=== PATIENT | male | born 1955 | race African-American/Black ===

== ENCOUNTER 2018-01-01 15:45 | Inpatient (IN) | payer OTHER ==
[~2018-01-01] VITALS: Ht 185.4 cm; Wt 90.7 kg
[2018-01-01 16:26] LABS: BASO % 0.3 %; BASO ABS # 0.02 K/uL (0-0.2); EOS % 3.6 %; EOS ABS # 0.22 K/uL (0-0.5); HEMATOCRIT 41.4 % (42-52); HEMOGLOBIN 13.6 g/dL (14.0-18.0); IG# 0.01 K/uL (0.00-0.02); LYMPH % 30.5 %; LYMPH ABS # 1.86 K/uL (1.2-3.4); MEAN CELL VOLUME 93.2 fL (80-100); MEAN CORPUSCULAR HEMOGLOBIN 30.6 pg (25-34); MEAN CORPUSCULAR HGB CONC 32.9 g/dl (32-36); MEAN PLATELET VOLUME 10.7 fL (7.4-10.4); MONO % 9.7 %; MONO ABS # 0.59 K/uL (0.11-0.59); NEUT % 55.7 %; PLATELET COUNT 251 K/uL (130-400); RED CELL DISTRIBUTION WIDTH CV 12.8 % (11.5-14.5); RED CELL DISTRIBUTION WIDTH SD 43.5 fL (36.4-46.3)
[2018-01-01 16:44] LABS: CALCIUM 9.5 mg/dl (8.5-10.1); CREATININE 1.17 mg/dl (0.60-1.40); POTASSIUM 3.8 mmol/L (3.5-5.1)
--- NOTE | 2018-01-01 16:57 | DIAGNOSTIC IMAGING REPORT ---
CT SCAN OF THE BRAIN WITHOUT IV CONTRAST CLINICAL HISTORY: Left-sided vision loss. COMPARISON STUDY: No priors. TECHNIQUE: Unenhanced axial CT scan of the brain is performed from the vertex to the skull base. A dose lowering technique was utilized adhering to the principles of ALARA. CT DOSE: 537.48 mGy.cm FINDINGS: Brain parenchyma: There is left occipital encephalomalacia consistent with a remote insult. There is heterogeneously diminished attenuation identified in the right temporo-occipital region. There are age-related involutional changes noting moderate subcortical and periventricular microangiopathic change. There is no hemorrhage, mass effect, or evidence of acute territorial ischemia by CT criteria. Main-white matter is preserved. No extra-axial fluid collection is seen. Ventricles, sulci, cisterns: Prominent secondary to involutional change. Intracranial vasculature: There is atherosclerotic calcification of the cavernous carotid arteries. Calvarium: Unremarkable. Soft tissues: There is a small posterior scalp contusion. Sinuses and mastoids: The visualized paranasal sinuses are clear. The mastoid air cells are well pneumatized. Orbits: The bony orbits are grossly intact. IMPRESSION: 1. There is no hemorrhage or mass effect. 2. Left occipital encephalomalacia is consistent with a remote insult. 3. There is heterogeneously diminished attenuation throughout the right temporal occipital region. This could represent a subacute infarct or less likely a mass lesion. Correlation with a contrast-enhanced MRI of the brain is recommended for further assessment. Electronically signed by: Dez Guerra M.D. 01/01/2018 4:56 PM Dictated Date/Time: 01/01/2018 4:48 PM
[2018-01-01] MEDS ORDERED: LORAZEPAM 1 MG TAB SL STA (17:02)
--- NOTE | 2018-01-01 17:21 | DIAGNOSTIC IMAGING REPORT ---
SINGLE VIEW CHEST CLINICAL HISTORY: Blurry vision. FINDINGS: An AP, portable, upright chest radiograph is obtained. No prior studies are available for comparison at the time of dictation. The examination is degraded by portable technique and patient rotation. The heart is mildly enlarged and there is atherosclerotic calcification of the thoracic aorta. The pulmonary vasculature is noncongested. There is mild left basilar atelectasis. No airspace consolidation or large pleural effusion is identified. No pneumothorax is seen. The skeletal structures appear osteopenic. The bony thorax is grossly intact. IMPRESSION: Mild cardiac enlargement with no acute cardiopulmonary abnormality. Electronically signed by: Dez Guerra M.D. 01/01/2018 5:20 PM Dictated Date/Time: 01/01/2018 5:19 PM
[2018-01-01] MEDS ORDERED: LISI-726 PO (17:36)
[2018-01-01] MEDS ORDERED: LPR25 PO (17:36)
[2018-01-01] MEDS ORDERED: GLC500 PO (17:36)
[2018-01-01] MEDS ORDERED: ATOR-22 PO (17:36)
[2018-01-01] MEDS ORDERED: ASPCH81X PO (17:36)
[2018-01-01] MEDS ORDERED: LORAZEPAM 2 MG/ML 1 ML VIAL IV STA ×2 (17:56→18:18)
[2018-01-01] MEDS ORDERED: SODIUM CHLORIDE 0.9% 1000ML 1,000 ML IV STA (20:10)
[2018-01-01] MEDS ORDERED: ASPIRIN 81 MG CHEW PO STA (20:11)
--- NOTE | 2018-01-01 20:35 | EMERGENCY ROOM VISIT NOTE ---
History Report prepared by Scribe: Jignesh Mehta Under the Supervision of: Dr. Luis Angel Ruby D.O. First contact with patient: 16:02 Chief Complaint: HEADACHE Stated Complaint: ACUTE CHANGE IN VISION WITH HEADACHE, POSSIBLE CVA History of Present Illness The patient is a 62 year old male who presents to the Emergency Room with complaints of constant right frontal headache beginning yesterday. He is incarcerated. The patient states that he occasionally has more severe "sharp" pains towards the right side of his face. He also complains of blurred vision. His symptoms began with his blurred vision. The patient's symptoms blurred vision is present in both eyes. He states that he could not see the outside upper portion (bilaterally) or the outside portion of his left eye yesterday as well. He states that this has improved to just be blurriness. The patient notes that he cannot see out of the outside portion of his right eye at baseline due to a previous stroke. Pt denies fevers, chest pain, shortness of breath, nausea , vomiting, diarrhea, pain with urination, numbness, weakness and melena. Source of History: patient Onset: Yesterday Position: head (right frontal) Quality: sharp Timing: constant Associated Symptoms: No fevers, No chest pain, No SOB, No nausea, No vomiting, No melena, No diarrhea, No urinary symptoms Note: Positive: visual changes. Review of Systems See HPI for pertinent positives & negatives. A total of 10 systems reviewed and were otherwise negative. Past Medical & Surgical Medical Problems: (1) Stroke Family History No pertinent family history stated. Social History Smoking Status: Current Every Day Smoker Housing Status: other (incarcerated) Occupation Status: other (incarcerated) Current/Historical Medications Scheduled Aspirin (Aspirin Chewable), 81 MG PO DAILY Atorvastatin (Lipitor), 20 MG PO DAILY Lisinopril (Lisinopril), 20 MG PO DAILY Metformin HCl (Metformin HCl), 500 MG PO BID Metoprolol Tartrate (Lopressor), 25 MG PO BID Allergies Coded Allergies: No Known Allergies (Unverified , 01/01/18) Physical Exam Vital Signs Date Time Temp Pulse Resp B/P (MAP) Pulse Ox O2 Delivery O2 Flow Rate FiO2 01/01/18 20:12 90 16 164/105 97 Room Air 01/01/18 18:33 71 20 177/98 96 Room Air 01/01/18 15:53 37.3 80 20 181/93 96 Room Air Physical Exam GENERAL: Sitting up in bed, shackled, well appearing, no distress, non-toxic EYE EXAM: normal conjunctiva. PERRL and EOM's intact. OROPHARYNX: no exudate, no erythema, lips, buccal mucosa, and tongue normal and mucous membranes are moist NECK: supple, no nuchal rigidity, no adenopathy, non-tender LUNGS: Clear to auscultation. Normal chest wall mechanics HEART: no murmurs, S1 normal and S2 normal ABDOMEN: abdomen soft, non-tender, normo-active bowel sounds, no masses, no rebound or guarding. BACK: Back is symmetrical on inspection and there is no deformity, no midline tenderness, no CVA tenderness. SKIN: no rashes and no bruising UPPER EXTREMITIES: upper extremities are grossly normal. LOWER EXTREMITIES: No pitting edema. NEURO EXAM: Normal sensorium, cranial nerves II-XII intact, normal speech, no weakness of arms, no weakness of legs. No drift. Finger to nose intact. Gross sensation intact. Medical Decision & Procedures ER Provider Diagnostic Interpretation: Radiology results as stated below per my review and the radiologist's interpretation: CT SCAN OF THE BRAIN WITHOUT IV CONTRAST FINDINGS: Brain parenchyma: There is left occipital encephalomalacia consistent with a remote insult. There is heterogeneously diminished attenuation identified in the right temporo-occipital region. There are age-related involutional changes noting moderate subcortical and periventricular microangiopathic change. There is no hemorrhage, mass effect, or evidence of acute territorial ischemia by CT criteria. Main-white matter is preserved. No extra-axial fluid collection is seen. Ventricles, sulci, cisterns: Prominent secondary to involutional change. Intracranial vasculature: There is atherosclerotic calcification of the cavernous carotid arteries. Calvarium: Unremarkable. Soft tissues: There is a small posterior scalp contusion. Sinuses and mastoids: The visualized paranasal sinuses are clear. The mastoid air cells are well pneumatized. Orbits: The bony orbits are grossly intact. IMPRESSION: 1. There is no hemorrhage or mass effect. 2. Left occipital encephalomalacia is consistent with a remote insult. 3. There is heterogeneously diminished attenuation throughout the right temporal occipital region. This could represent a subacute infarct or less likely a mass lesion. Correlation with a contrast-enhanced MRI of the brain is recommended for further assessment. Electronically signed by: Dez Guerra M.D. 01/01/2018 4:56 PM SINGLE VIEW CHEST FINDINGS: An AP, portable, upright chest radiograph is obtained. No prior studies are available for comparison at the time of dictation. The examination is degraded by portable technique and patient rotation. The heart is mildly enlarged and there is atherosclerotic calcification of the thoracic aorta. The pulmonary vasculature is noncongested. There is mild left basilar atelectasis. No airspace consolidation or large pleural effusion is identified. No pneumothorax is seen. The skeletal structures appear osteopenic. The bony thorax is grossly intact. IMPRESSION: Mild cardiac enlargement with no acute cardiopulmonary abnormality. Electronically signed by: Dez Guerra M.D. 01/01/2018 5:20 PM Laboratory Results 01/01/18 16:02 Red Blood Count 4.44, Mean Corpuscular Volume 93.2, Mean Corpuscular Hemoglobin 30.6, Mean Corpuscular Hemoglobin Concent 32.9, Mean Platelet Volume 10.7, Neutrophils (%) (Auto) 55.7, Lymphocytes (%) (Auto) 30.5, Monocytes (%) (Auto) 9.7, Eosinophils (%) (Auto) 3.6, Basophils (%) (Auto) 0.3, Neutrophils # (Auto) 3.40, Lymphocytes # (Auto) 1.86, Monocytes # (Auto) 0.59, Eosinophils # (Auto) 0.22, Basophils # (Auto) 0.02 01/01/18 16:02 Test 01/01/18 16:02 01/01/18 20:24 White Blood Count 6.10 K/uL (4.8-10.8) Red Blood Count 4.44 M/uL (4.7-6.1) Hemoglobin 13.6 g/dL (14.0-18.0) Hematocrit 41.4 % (42-52) Mean Corpuscular Volume 93.2 fL (80-100) Mean Corpuscular Hemoglobin 30.6 pg (25-34) Mean Corpuscular Hemoglobin Concent 32.9 g/dl (32-36) Platelet Count 251 K/uL (130-400) Mean Platelet Volume 10.7 fL (7.4-10.4) Neutrophils (%) (Auto) 55.7 % Lymphocytes (%) (Auto) 30.5 % Monocytes (%) (Auto) 9.7 % Eosinophils (%) (Auto) 3.6 % Basophils (%) (Auto) 0.3 % Neutrophils # (Auto) 3.40 K/uL (1.4-6.5) Lymphocytes # (Auto) 1.86 K/uL (1.2-3.4) Monocytes # (Auto) 0.59 K/uL (0.11-0.59) Eosinophils # (Auto) 0.22 K/uL (0-0.5) Basophils # (Auto) 0.02 K/uL (0-0.2) RDW Standard Deviation 43.5 fL (36.4-46.3) RDW Coefficient of Variation 12.8 % (11.5-14.5) Immature Granulocyte % (Auto) 0.2 % Immature Granulocyte # (Auto) 0.01 K/uL (0.00-0.02) Anion Gap 5.0 mmol/L (3-11) Est Creatinine Clear Calc Drug Dose 72.1 ml/min Estimated GFR () 75.9 Estimated GFR (Non- 65.5 BUN/Creatinine Ratio 15.6 (10-20) Calcium Level 9.5 mg/dl (8.5-10.1) Laboratory results per my review. Medications Administered Medications (Trade) Dose Ordered Sig/Nahum Route Start Time Stop Time Status Last Admin Dose Admin Lorazepam (Ativan Tab) 1 mg NOW STAT SL 01/01/18 17:02 01/01/18 17:03 DC 01/01/18 17:27 1 MG Lorazepam (Ativan Inj) 2 mg NOW STAT IV 01/01/18 18:18 01/01/18 18:21 DC 01/01/18 18:36 2 MG Sodium Chloride 1,000 ml @ 999 mls/hr Q1H1M STAT IV 01/01/18 20:10 01/01/18 21:10 01/01/18 20:24 999 MLS/HR Aspirin (Aspirin Chew) 81 mg NOW STAT PO 01/01/18 20:11 01/01/18 20:12 DC 01/01/18 20:24 81 MG ECG Per My Interpretation Indication: other (visual changes) Rate (beats per minute): 71 Rhythm: sinus rhythm Findings: Q waves (inferior, lateral), other (Normal axis. No PVCs/PACs. ) ED Course ED COURSE: Vital signs were reviewed and showed hypertension. The patients medical record was reviewed The above diagnostic studies were performed and reviewed. ED treatments and interventions as stated above. 1609: The patient was evaluated in room A11B. A complete history and physical examination was performed. 170: Ordered Ativan Tab 1 mg SL. 175: Ordered Ativan Inj 1 mg IV. 1817: The patient reports feeling too anxious for his MRI. He agrees to Ativan. Ordered Ativan Inj 2 mg IV. 2004: Upon reevaluation, the patient is resting comfortably. I discussed my findings with the patient and he understands and agrees with the treatment plan. Based on the patients age, coexisting illnesses, exam and lab findings the decision to treat as an inpatient was made. The patient remained stable while under my care. The patient will be evaluated for further management. Medical Decision Differential Diagnosis includes but is not limited to headache, tension headache , cluster headache, migraine, subarachnoid hemorrhage, meningitis, mass, central venous thrombus, concussion, trauma and epidural/subdural hemorrhage. Patient is a 62-year-old male who presents to ER for visual complaints and for possible stroke. Patient is otherwise neurologically intact. He is able to ambulate. CBC along with BMP is unremarkable. CT head showed a heterogeneous attenuation throughout the right occipital region. Chest x-ray was unremarkable. Patient was given a total of 3 doses of Ativan for a total of 3 mg for the MRI as he was extremely anxious. MRI was obtained and did confirm a stroke in the right occipital region. Discussed with internal medicine. I updated patient at bedside. Patient was admitted for CVA. Medication Reconcilliation Current Medication List: was personally reviewed by [facility] Blood Pressure Screening Patient's blood pressure: Elevated blood pressure Blood pressure disposition: Referred to PCP Consults Time Called: 161 Consulting Physician: Dr. Madsen - Neurology Returned Call: [phone] I discussed the patient's case with Dr. Madsen. She recommends MRI brain with/ without contrast, and MRI Sella. Additional Consults: Time Called: 2004 Consulted Physician: Dr. Morris - [facility] Hospitalist Returned Call: 2006 Additional Comments: I reviewed the patient's case with Dr. Morris. [facility] will evaluate the patient for further management. Impression Primary Impression: CVA (cerebral vascular accident) Additional Impression: Anemia Scribe Attestation The scribe's documentation has been prepared under my direction and personally reviewed by me in its entirety. I confirm that the note above accurately reflects all work, treatment, procedures, and medical decision making performed by me. Departure Information Dispostion Being Evaluated By Hospitalist Patient Instructions [facility] Stroke History Time Last Known Well 24hrs ago Stroke t-PA Criteria Reviewed Does NOT meet criteria for t-PA Reason t-PA Not Given Treatment not indicated Problem Qualifiers Primary Impression: CVA (cerebral vascular accident) CVA mechanism: unspecified Qualified Codes: I63.9 - Cerebral infarction, unspecified Additional Impression: Anemia Anemia type: unspecified type Qualified Codes: D64.9 - Anemia, unspecified
--- NOTE | 2018-01-01 20:58 | DIAGNOSTIC IMAGING REPORT ---
MRI OF THE BRAIN COMBO; MRI OF THE PITUITARY GLAND COMBO CLINICAL HISTORY: Visual changes. COMPARISON STUDY: CT of the brain dated 01/01/2018. TECHNIQUE: MRI of the brain was performed utilizing various T1 and T2-weighted sequences in the axial, sagittal, and coronal planes. Contrast-enhanced sequences were acquired following the administration of 9 cc of Gadavist. Additional high-resolution and dynamic postcontrast imaging of the pituitary gland is performed. The Examination is degraded by motion artifact. FINDINGS: Brain parenchyma: There are age-related involutional changes noting moderate to advanced subcortical and periventricular microangiopathic disease. No hemorrhage or midline shift is identified. There is a large region of restricted diffusion identified involving predominantly the right occipital lobe consistent with acute to subacute ischemia. There is mild surrounding edema. Encephalomalacia in the left occipital lobe is consistent with a remote infarct. No additional foci of acute ischemia are identified. No enhancing mass lesion is seen on the postcontrast images. No extra-axial fluid collection is seen. The cerebellar tonsils are normal in configuration. Ventricles, sulci, and cisterns: Prominent second or to involutional change. Pituitary and sella: The pituitary gland is normal in morphology. There is no evidence of pituitary lesion on the dynamic postcontrast sequences. The infundibulum is midline. Intracranial vasculature: Normal flow voids are maintained at the skull base. Orbits: The bony orbits are grossly intact. Orbital contents are normal in appearance. Sinuses and mastoids: There is mild mucosal thickening in the right maxillary antrum. A 3 cm retention cyst is noted in the left maxillary antrum. The remaining paranasal sinuses are clear. The mastoid air cells are well pneumatized. Calvarium: Unremarkable. Cervical cord: Partially visualized cervical spinal cord is normal in morphology and signal intensity. IMPRESSION: 1. There is a large acute to subacute infarct involving the right occipital lobe. 2. No additional foci of acute ischemia are identified. There is no hemorrhage or midline shift. 3. There is a remote left occipital infarct. 4. Unremarkable MRI of the pituitary gland. Electronically signed by: Dez Guerra M.D. 01/01/2018 8:56 PM Dictated Date/Time: 01/01/2018 8:50 PM
[2018-01-01 21:12] LABS: ALBUMIN 3.8 gm/dl (3.4-5.0); TOTAL PROTEIN 8.1 gm/dl (6.4-8.2)
[2018-01-01 22:00] VITALS: BP 167/92; PULSE 86; TEMP 37.2; O2SAT 98; Ht 185.4 cm; Wt 90.7 kg
[2018-01-01] MEDS ORDERED: CLOPIDOGREL BISULFATE 75 MG TAB PO STA (22:11)
[2018-01-01] MEDS ORDERED: ACETAMINOPHEN 325 MG TAB PO PRN (22:15)
[2018-01-01] MEDS ORDERED: PHARMACIST DISCHARGE MED REC CONSULT PRN (22:15)
[2018-01-01 22:45] LABS: PTT PATIENT 24.9 SECONDS (21.0-31.0)
[2018-01-01 22:52] VITALS: BP 153/84; PULSE 85; TEMP 37.1; O2SAT 97
[2018-01-01 23:30] VITALS: BP 191/100; PULSE 85; TEMP 36.8; O2SAT 97
--- NOTE | 2018-01-01 23:31 | History and Physical ---
History & Physical Date & Time of Service: Jan 01, 2018 at 23:31 Chief Complaint: CVA Primary Care Physician: Stas BOONE History of Present Illness Source: patient, hospital records The patient is a 62-year-old male resident of [place], who presents to the emergency department with complaint of constant right frontal headache that began yesterday, and occasionally becomes more severe towards the right side of his face. His symptoms began with blurred vision in both eyes, in particular difficulty seeing upper and outside portion of his left eye yesterday. He had a stroke 9 years ago, that he left him with inability to see the upper outer portion of his right eye. Past Medical/Surgical History Medical Problems: (1) Stroke Family History Noncontributory Social History Smoking Status: Current Every Day Smoker Smokeless Tobacco Use: No Alcohol Use: none Housing status: other ([facility]) Occupational Status: other (incarcerated) Immunizations History of Influenza Vaccine: Unknown History of Tetanus Vaccine?: Unknown History of Pneumococcal: Unknown History of Hepatitis B Vaccine: Unknown Allergies Coded Allergies: No Known Allergies (Unverified , 01/01/18) Home Medications Scheduled Aspirin (Aspirin Chewable), 81 MG PO DAILY Atorvastatin (Lipitor), 20 MG PO DAILY Lisinopril (Lisinopril), 20 MG PO DAILY Metformin HCl (Metformin HCl), 500 MG PO BID Metoprolol Tartrate (Lopressor), 25 MG PO BID Review of Systems The patient denies chest pain, palpitations, shortness of breath, dyspnea on exertion, cough, lower extremity swelling, sore throat, fevers, chills, sweats, weight change, fatigue, nausea, vomiting, diarrhea , constipation, abdominal pain, pelvic pain, blood in urine or stool, dysuria, urinary frequency or urgency, lightheadedness , dizziness, memory loss, loss of consciousness, rash, abnormal bruising or bleeding, imbalance, focal or generalized weakness, numbness or tingling in arms or legs, generalized arthralgias or myalgias, back or neck pain, or night sweats. The review of systems is otherwise negative other than for that already noted above, and at least 10 systems have been reviewed. Physical Exam Vital Signs Date Time Temp Pulse Resp B/P (MAP) Pulse Ox O2 Delivery O2 Flow Rate FiO2 01/01/18 23:30 36.8 85 18 191/100 (130) 97 Room Air 01/01/18 22:52 37.1 85 18 153/84 (107) 97 Room Air 01/01/18 22:00 37.2 86 20 167/92 98 Room Air 01/01/18 21:40 98 16 188/107 97 Room Air 01/01/18 20:12 90 16 164/105 97 Room Air 01/01/18 18:33 71 20 177/98 96 Room Air 01/01/18 15:53 37.3 80 20 181/93 96 Room Air The patient is awake, alert and oriented 3, well developed and well nourished, normocephalic and atraumatic, lying in bed and in no acute distress. HEENT--PERRL, EOMI, mucous membranes and oropharynx dry. Neck--supple. No JVD. No bruits. Thyroid normal, trachea midline, no adenopathy. Heart--normal S1 and S2. No murmurs, rubs or gallops. Lungs--clear bilaterally, no respiratory distress, no accessory muscle use. Abdomen--normal bowel sounds and soft. Nontender. Nondistended, no hernias or masses, no organomegaly. Extremities--no cyanosis or clubbing. No edema. There are good distal pulses b/ l. Dermatologic--normal skin turgor, normal color, no abnormal lymph nodes, no rash. Neurologic--cranial nerves II through XII grossly intact. Rheumatologic--normal range of motion. Psychiatric--normal affect. Diagnostics Laboratory Results Results Past 24 Hours Test 01/01/18 16:02 01/01/18 22:40 Range/Units White Blood Count 6.10 4.8-10.8 K/uL Red Blood Count 4.44 4.7-6.1 M/uL Hemoglobin 13.6 14.0-18.0 g/dL Hematocrit 41.4 42-52 % Mean Corpuscular Volume 93.2 80-100 fL Mean Corpuscular Hemoglobin 30.6 25-34 pg Mean Corpuscular Hemoglobin Concent 32.9 32-36 g/dl Platelet Count 251 130-400 K/uL Mean Platelet Volume 10.7 7.4-10.4 fL Neutrophils (%) (Auto) 55.7 % Lymphocytes (%) (Auto) 30.5 % Monocytes (%) (Auto) 9.7 % Eosinophils (%) (Auto) 3.6 % Basophils (%) (Auto) 0.3 % Neutrophils # (Auto) 3.40 1.4-6.5 K/uL Lymphocytes # (Auto) 1.86 1.2-3.4 K/uL Monocytes # (Auto) 0.59 0.11-0.59 K/uL Eosinophils # (Auto) 0.22 0-0.5 K/uL Basophils # (Auto) 0.02 0-0.2 K/uL RDW Standard Deviation 43.5 36.4-46.3 fL RDW Coefficient of Variation 12.8 11.5-14.5 % Immature Granulocyte % (Auto) 0.2 % Immature Granulocyte # (Auto) 0.01 0.00-0.02 K/uL Prothrombin Time 10.3 9.0-12.0 SECONDS Prothromb Time International Ratio 1.0 0.9-1.1 Activated Partial Thromboplast Time 24.9 21.0-31.0 SECONDS Partial Thromboplastin Ratio 1.0 Sodium Level 137 136-145 mmol/L Potassium Level 3.8 3.5-5.1 mmol/L Chloride Level 103 98-107 mmol/L Carbon Dioxide Level 29 21-32 mmol/L Anion Gap 5.0 3-11 mmol/L Blood Urea Nitrogen 18 7-18 mg/dl Creatinine 1.17 0.60-1.40 mg/dl Est Creatinine Clear Calc Drug Dose 72.1 ml/min Estimated GFR () 75.9 Estimated GFR (Non- 65.5 BUN/Creatinine Ratio 15.6 10-20 Random Glucose 185 70-99 mg/dl Calcium Level 9.5 8.5-10.1 mg/dl Magnesium Level 1.9 1.8-2.4 mg/dl Total Bilirubin 0.4 0.2-1 mg/dl Direct Bilirubin 0.1 0-0.2 mg/dl Aspartate Amino Transf (AST/SGOT) 18 15-37 U/L Alanine Aminotransferase (ALT/SGPT) 17 12-78 U/L Alkaline Phosphatase 82 45-117 U/L Total Protein 8.1 6.4-8.2 gm/dl Albumin 3.8 3.4-5.0 gm/dl Triglycerides Level 121 0-150 mg/dl Cholesterol Level 103 0-200 mg/dl HDL Cholesterol 45 mg/dl LDL Cholesterol, Calculated 34 mg/dl VLDL Cholesterol, Calculated 24 mg/dl Cholesterol/HDL Ratio 2.3 Bedside Glucose 185 70-99 mg/dl Diagnostic Radiology Patient Name: RAJANI BYRNE [id number] Unit Number: [id number] Dictated: 01/01/181647 Transcribed: 01/01/181647 EV Printed Date/Time: [~ rep prt dt]/[~ rep prt tm] [~ rep ct labl] - [~ rep ct ivnm] [facility] [place] [address] Dictated: 01/01/181647 Transcribed: 01/01/181647 EV Printed Date/Time: [~ rep prt dt]/[~ rep prt tm] [~ rep ct labl] - [~ rep ct ivnm] CT SCAN OF THE BRAIN WITHOUT IV CONTRAST CLINICAL HISTORY: Left-sided vision loss. COMPARISON STUDY: No priors. TECHNIQUE: Unenhanced axial CT scan of the brain is performed from the vertex to the skull base. A dose lowering technique was utilized adhering to the principles of ALARA. CT DOSE: 537.48 mGy.cm FINDINGS: Brain parenchyma: There is left occipital encephalomalacia consistent with a remote insult. There is heterogeneously diminished attenuation identified in the right temporo-occipital region. There are age-related involutional changes noting moderate subcortical and periventricular microangiopathic change. There is no hemorrhage, mass effect, or evidence of acute territorial ischemia by CT criteria. Main-white matter is preserved. No extra-axial fluid collection is seen. Ventricles, sulci, cisterns: Prominent secondary to involutional change. Intracranial vasculature: There is atherosclerotic calcification of the cavernous carotid arteries. Calvarium: Unremarkable. Soft tissues: There is a small posterior scalp contusion. Sinuses and mastoids: The visualized paranasal sinuses are clear. The mastoid air cells are well pneumatized. Orbits: The bony orbits are grossly intact. IMPRESSION: 1. There is no hemorrhage or mass effect. 2. Left occipital encephalomalacia is consistent with a remote insult. 3. There is heterogeneously diminished attenuation throughout the right temporal occipital region. This could represent a subacute infarct or less likely a mass lesion. Correlation with a contrast-enhanced MRI of the brain is recommended for further assessment. Electronically signed by: Dez Guerra M.D. 01/01/2018 4:56 PM Dictated Date/Time: 01/01/2018 4:48 PM The status of this report is Signed. Draft = Not yet reviewed or approved by Radiologist. Signed = Reviewed and approved by Radiologist. <AttendingPhy></AttendingPhy> <FamilyPhy>Stas BOONE</FamilyPhy> <PrimaryPhy>Stas BOONE</PrimaryPhy> <UnitNumber>[id number]</UnitNumber> <VisitNumber> [id number]</VisitNumber> <PatientName>RAJANI BYRNE [id number]</PatientName> < DateOfBirth>1955</DateOfBirth> <Location>[facility]</Location> <ServiceDate>04/11</ServiceDate> <MNE>ESINDI</MNE> <OrderingPhy>Luis Angel Ruby DO</ OrderingPhy> <OrderingPhyMNE>f rep ord dr cannon</OrderingPhyMNE> <DictatingPhyMNE> f rep dict dr cannon</DictatingPhyMNE> <CCListMNE>f rep ct mne</CCListMNE> < AdmittingPhyMNE>f pt admit dr cannon</AdmittingPhyMNE> <AttendingPhyMNE>f pt attend dr cannon</AttendingPhyMNE> <ConsultingPhyMNE>f pt consult dr cannon</ConsultingPhyMNE> <FamilyPhyMNE>f pt fam dr cannon</FamilyPhyMNE> <OtherPhyMNE>f pt other dr cannon</OtherPhyMNE> < PrimaryPhyMNE>f pt prim care dr cannon</PrimaryPhyMNE> <ReferringPhyMNE>f pt referring dr cannon</ReferringPhyMNE> Patient Name: RAJANI BYRNE [id number] Unit Number: [id number] Dictated: 01/01/181718 Transcribed: 01/01/181718 EV Printed Date/Time: [~ rep prt dt]/[~ rep prt tm] [~ rep ct labl] - [~ rep ct ivnm] [facility] [place] [address] Dictated: 01/01/181718 Transcribed: 01/01/181718 EV Printed Date/Time: [~ rep prt dt]/[~ rep prt tm] [~ rep ct labl] - [~ rep ct ivnm] [~ rep ct add3]] SINGLE VIEW CHEST CLINICAL HISTORY: Blurry vision. FINDINGS: An AP, portable, upright chest radiograph is obtained. No prior studies are available for comparison at the time of dictation. The examination is degraded by portable technique and patient rotation. The heart is mildly enlarged and there is atherosclerotic calcification of the thoracic aorta. The pulmonary vasculature is noncongested. There is mild left basilar atelectasis. No airspace consolidation or large pleural effusion is identified. No pneumothorax is seen. The skeletal structures appear osteopenic. The bony thorax is grossly intact. IMPRESSION: Mild cardiac enlargement with no acute cardiopulmonary abnormality. Electronically signed by: Dez Guerra M.D. 01/01/2018 5:20 PM Dictated Date/Time: 01/01/2018 5:19 PM The status of this report is Signed. Draft = Not yet reviewed or approved by Radiologist. Signed = Reviewed and approved by Radiologist. <AttendingPhy></AttendingPhy> <FamilyPhy>MELYStas</FamilyPhy> <PrimaryPhy>Warren BOONEner</PrimaryPhy> <UnitNumber>[id number]</UnitNumber> <VisitNumber> [id number]</VisitNumber> <PatientName>RAJANI BYRNE [id number]</PatientName> < DateOfBirth>1955</DateOfBirth> <Location>[facility]</Location> <ServiceDate>04/11</ServiceDate> <MNE>ESINDI</MNE> <OrderingPhy>Luis Angel Ruby DO</ OrderingPhy> <OrderingPhyMNE>f rep ord dr cannon</OrderingPhyMNE> <DictatingPhyMNE> f rep dict dr cannon</DictatingPhyMNE> <CCListMNE>f rep ct mne</CCListMNE> < AdmittingPhyMNE>f pt admit dr cannon</AdmittingPhyMNE> <AttendingPhyMNE>f pt attend dr cannon</AttendingPhyMNE> <ConsultingPhyMNE>f pt consult dr cannon</ConsultingPhyMNE> <FamilyPhyMNE>f pt fam dr cannon</FamilyPhyMNE> <OtherPhyMNE>f pt other dr cannon</OtherPhyMNE> < PrimaryPhyMNE>f pt prim care dr cannon</PrimaryPhyMNE> <ReferringPhyMNE>f pt referring dr cannon</ReferringPhyMNE> Patient Name: RAJANI BYRNE [id number] Unit Number: [id number] Dictated: 01/01/182049 Transcribed: 01/01/182049 EV Printed Date/Time: [~ rep prt dt]/[~ rep prt tm] [~ rep ct labl] - [~ rep ct ivnm] [facility] [place] [address] Dictated: 01/01/182049 Transcribed: 01/01/182049 EV Printed Date/Time: [~ rep prt dt]/[~ rep prt tm] [~ rep ct labl] - [~ rep ct ivnm] [~ rep ct add3]] MRI OF THE BRAIN COMBO; MRI OF THE PITUITARY GLAND COMBO CLINICAL HISTORY: Visual changes. COMPARISON STUDY: CT of the brain dated 01/01/2018. TECHNIQUE: MRI of the brain was performed utilizing various T1 and T2-weighted sequences in the axial, sagittal, and coronal planes. Contrast-enhanced sequences were acquired following the administration of 9 cc of Gadavist. Additional high-resolution and dynamic postcontrast imaging of the pituitary gland is performed. The Examination is degraded by motion artifact. FINDINGS: Brain parenchyma: There are age-related involutional changes noting moderate to advanced subcortical and periventricular microangiopathic disease. No hemorrhage or midline shift is identified. There is a large region of restricted diffusion identified involving predominantly the right occipital lobe consistent with acute to subacute ischemia. There is mild surrounding edema. Encephalomalacia in the left occipital lobe is consistent with a remote infarct. No additional foci of acute ischemia are identified. No enhancing mass lesion is seen on the postcontrast images. No extra-axial fluid collection is seen. The cerebellar tonsils are normal in configuration. Ventricles, sulci, and cisterns: Prominent second or to involutional change. Pituitary and sella: The pituitary gland is normal in morphology. There is no evidence of pituitary lesion on the dynamic postcontrast sequences. The infundibulum is midline. Intracranial vasculature: Normal flow voids are maintained at the skull base. Orbits: The bony orbits are grossly intact. Orbital contents are normal in appearance. Sinuses and mastoids: There is mild mucosal thickening in the right maxillary antrum. A 3 cm retention cyst is noted in the left maxillary antrum. The remaining paranasal sinuses are clear. The mastoid air cells are well pneumatized. Calvarium: Unremarkable. Cervical cord: Partially visualized cervical spinal cord is normal in morphology and signal intensity. IMPRESSION: 1. There is a large acute to subacute infarct involving the right occipital lobe. 2. No additional foci of acute ischemia are identified. There is no hemorrhage or midline shift. 3. There is a remote left occipital infarct. 4. Unremarkable MRI of the pituitary gland. Electronically signed by: Dez Guerra M.D. 01/01/2018 8:56 PM Dictated Date/Time: 01/01/2018 8:50 PM The status of this report is Signed. Draft = Not yet reviewed or approved by Radiologist. Signed = Reviewed and approved by Radiologist. <AttendingPhy></AttendingPhy> <FamilyPhy>SCIWarrenStas</FamilyPhy> <PrimaryPhy>SCIStas</PrimaryPhy> <UnitNumber>[id number]</UnitNumber> <VisitNumber> [id number]</VisitNumber> <PatientName>RAJANI BYRNE [id number]</PatientName> < DateOfBirth>1955</DateOfBirth> <Location>[facility]</Location> <ServiceDate>04/11</ServiceDate> <MNE>ESINDI</MNE> <OrderingPhy>Luis Angel Ruby DO</ OrderingPhy> <OrderingPhyMNE>f rep ord dr cannon</OrderingPhyMNE> <DictatingPhyMNE> f rep dict dr cannon</DictatingPhyMNE> <CCListMNE>f rep ct mne</CCListMNE> < AdmittingPhyMNE>f pt admit dr cannon</AdmittingPhyMNE> <AttendingPhyMNE>f pt attend dr cannon</AttendingPhyMNE> <ConsultingPhyMNE>f pt consult dr cannon</ConsultingPhyMNE> <FamilyPhyMNE>f pt fam dr cannon</FamilyPhyMNE> <OtherPhyMNE>f pt other dr cannon</OtherPhyMNE> < PrimaryPhyMNE>f pt prim care dr cannon</PrimaryPhyMNE> <ReferringPhyMNE>f pt referring dr cannon</ReferringPhyMNE> EKG RAJANI BYRNE ID:[id number] 01-JAN-2018 16:28:50 [facility] Normal sinus rhythm Lateral infarct , age undetermined Inferior infarct , age undetermined Abnormal ECG No previous ECGs available 25mm/s 10mm/mV 150Hz 8.0 SP2 12SL 241 HAYDEN: 15 Referred by: Stas BOONE Unconfirmed Vent. rate 71 BPM NV interval 150 ms QRS duration 98 ms QT/QTc 386/419 ms P-R-T axes 31 53 1 1955 (62 yr) Male Room: Loc:15 Director Epidemiology:GILLIAN DEVLIN Impression Assessment and Plan Large acute to subacute infarct involving the right occipital lobe/remote left occipital infarct-- The patient will be admitted to telemetry for serial cardiac enzymes, serial EKG's, cardiac rhythm monitoring and a 2-D echocardiogram with Dopplers. Stroke protocol order set without TPA. Consult PT/OT/social services designee/neurology. Hold aspirin. Start clopidogrel 75 mg p.o. daily. Continue metoprolol tartrate 25 mg p.o. twice daily and lisinopril 20 mg p.o. daily. Diabetes mellitus--hold metformin 500 mg p.o. twice daily. Placed on Accu-Cheks before meals and at bedtime with NovoLog coverage per scale. Check hemoglobin A1c. Hyperlipidemia-- Continue atorvastatin 20 mg p.o. daily. Check a fasting lipid panel Advanced Directives Existing Advance Directive: No Existing Living Will: No Existing Power of Invas Tech: No Resuscitation Status VTE Prophylaxis Will order VTE Prophylaxis: Yes
[2018-01-02 04:26] LABS: BASO % 0.4 %; BASO ABS # 0.02 K/uL (0-0.2); EOS % 4.5 %; EOS ABS # 0.24 K/uL (0-0.5); HEMATOCRIT 37.2 % (42-52); HEMOGLOBIN 12.1 g/dL (14.0-18.0); IG# 0.01 K/uL (0.00-0.02); LYMPH % 37.2 %; MEAN CELL VOLUME 93.2 fL (80-100); MEAN CORPUSCULAR HEMOGLOBIN 30.3 pg (25-34); MEAN CORPUSCULAR HGB CONC 32.5 g/dl (32-36); MONO % 9.7 %; MONO ABS # 0.52 K/uL (0.11-0.59); NEUT ABS # 2.59 K/uL (1.4-6.5); PLATELET COUNT 226 K/uL (130-400); RED CELL DISTRIBUTION WIDTH CV 12.6 % (11.5-14.5); WHITE BLOOD COUNT 5.38 K/uL (4.8-10.8)
[2018-01-02 04:29] VITALS: BP 158/88; PULSE 70; TEMP 36.8; O2SAT 98
[2018-01-02 04:50] LABS: BLOOD UREA NITROGEN 15 mg/dl (7-18); CALCIUM 8.5 mg/dl (8.5-10.1); CARBON DIOXIDE 26 mmol/L (21-32); CKMB < 1.0 ng/ml (0.5-3.6); CREATININE 0.97 mg/dl (0.60-1.40); GLUCOSE 144 mg/dl (70-99); POTASSIUM 3.9 mmol/L (3.5-5.1); SODIUM 142 mmol/L (136-145)
[2018-01-02 06:22] LABS: HEMOGLOBIN A1C 5.6 % (4.5-5.6)
[2018-01-02 06:53] VITALS: BP 165/96; PULSE 61; TEMP 36.7; O2SAT 96
[2018-01-02] MEDS: LISINOPRIL 20 MG TAB PO SCH (07:40)
[2018-01-02] MEDS: HEPARIN SOD 5000 UNIT/0.5 ML CARP SQ SCH ×2 (07:42→20:51)
[2018-01-02] MEDS ORDERED: OPTIRAY 320 IV PRN (08:30)
[2018-01-02] MEDS ORDERED: ATORVASTATIN 20 MG TAB PO SCH (09:00)
[2018-01-02] MEDS ORDERED: METOPROLOL TARTRATE 25 MG TAB PO SCH (09:00)
[2018-01-02] MEDS: CLOPIDOGREL BISULFATE 75 MG TAB PO SCH (09:09)
--- NOTE | 2018-01-02 10:47 | DIAGNOSTIC IMAGING REPORT ---
HEAD ANGIO WITH CONTRAST CLINICAL HISTORY: Mental status change stroke. TECHNIQUE: Transaxial acquisition with multi axial reformatted images. COMPARISON STUDY: None FINDINGS: Major intracranial vasculature is unremarkable. No evidence for vascular occlusion. No evidence for aneurysm or dissection. IMPRESSION: Normal study of the [place] of [place]. The above report was generated using voice recognition software. It may contain grammatical, syntax or spelling errors. Electronically signed by: Luis Weems M.D. 01/02/2018 10:45 AM Dictated Date/Time: 01/02/2018 10:41 AM
--- NOTE | 2018-01-02 11:10 | DIAGNOSTIC IMAGING REPORT ---
NECK ANGIO WITH CONTRAST CLINICAL HISTORY: 62 years-old Male with . Presents with acute mental status change and strokelike symptoms COMPARISON STUDY: CTA of the head of same day, brain MRI 01/01/2018 TECHNIQUE: Following the IV administration of 118 of Optiray 320, CT angiogram of the neck was performed from the aortic arch to the skull base. Images are reviewed in the axial, sagittal, and coronal planes. 3-D MIPS images are created and assessed. IV contrast was administered without complication. All measurements were calculated based on NASCET criteria. A dose lowering technique was utilized adhering to the principles of ALARA. FINDINGS: Bovine morphology of the aortic arch. The imaged subclavian arteries appear patent bilaterally. The imaged thoracic aorta and pulmonary arteries appear unremarkable. The bilateral common and internal carotid arteries are widely patent and within normal limits. The vertebral arteries are codominant and widely patent. The imaged basilar artery is also widely patent and within normal limits. Single focus of air within the cavernous sinus may be from IV access site. No aneurysm, dissection, high-grade stenosis or proximal branch occlusion. Emphysematous changes about the lung apices. The thyroid and soft tissues are unremarkable. Mastoid air cells and middle ear cavities are clear. Large area of polypoid mucosal thickening involves the left maxillary sinus. Moderate polypoid mucosal thickening about the right maxillary sinus. There is mucosal thickening of the nasal turbinates with mild to moderate ethmoid sinus disease. Calcifications of the hard palate are also noted. Degenerative changes of the cervical spine. IMPRESSION: 1. Unremarkable CTA of the neck without aneurysm, high-grade stenosis, dissection or proximal branch occlusion. 2. Paranasal sinus disease as above. The above report was generated using voice recognition software. It may contain grammatical, syntax or spelling errors. Electronically signed by: Raul Gloria M.D. 01/02/2018 11:08 AM Dictated Date/Time: 01/02/2018 10:57 AM
[2018-01-02 11:36] VITALS: BP 182/98; PULSE 72; TEMP 36.8; O2SAT 98
--- NOTE | 2018-01-02 11:44 | Neurology Consultation ---
Neurology Consultation Date of Consultation: Jan 02, 2018. Attending Physician: Mik De Leon MD [facility] Reason for Consultation: Patient is a 62-year-old, was asked to see the request of Dr. Morris, for neurologic consultation regarding stroke History of Present Illness Source: patient, caregiver, hospital records Patient is currently an inmate at [facility] [place], where he has been for the last 5 months. Patient has a history of a left occipital stroke 2 or 3 years ago. He has been left with some decreased vision off to the right. He has a history of hypertension and diabetes for many years, but he cannot be specific. He also has dyslipidemia. Apparently at age 48 he had a heart attack. He has no other heart issues. He has been on aspirin, Lipitor, lisinopril, Lopressor, and metformin. He woke December 31 not be able to see laterally both sides. The left was new. He had a right frontal headache and some blurry vision. He had no weakness or numbness in his arms or legs and had no balance problems, speech problems or issues with mentation. He told the guard who put in a medical slipped. He tells me that he saw medical people around 2 o'clock in the afternoon on December 31 and they did some evaluation. The next morning he was evaluated and then sent to the emergency room. Patient feels that his visual symptoms have remained the same although the headache is been better. He arrived January 01 at 1553 hours with a temperature 37.3, pulse of 80, respiratory rate 20, blood pressure 181/93, and O2 saturation 96 percent. In the emergency room he had no focal neurologic signs, meningeal signs, or encephalopathy. CT scan of the head showed an old right occipital CVA and a possible new right temporal occipital stroke. Chest x-ray showed mild cardiomegaly MRI of the brain showed a large new right occipital acute/subacute stroke. There was moderate old small vessel ischemic change and the old right occipital stroke. Radiology also commented on a normal pituitary gland CBC showed mild anemia. Glucose was 185 but the Chem profile was otherwise unremarkable. Fasting lipid profile was unremarkable. He has had no further issues and is the same with his vision. He does not have a headache. This morning, CT angiography of the head and neck were unremarkable with no significant stenoses or aneurysms. Past Medical/Surgical History Medical Problems: (1) Anemia Status: Acute (2) CVA (cerebral vascular accident) Status: Acute Old left occipital CVA New right occipital CVA Hypertension Diabetes Dyslipidemia History of [place] in the past His only surgery was testicular hydrocele repair many years ago and teeth removal. Family History Mother is alive at age 90 has a history of hypertension, diabetes, and glaucoma Father of closed head trauma but he would not give me any further details regarding this or age. Social History Patient is a lifelong cigarette smoker. 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 Smoking Status: Current every day smoker Smokeless Tobacco Use: No Alcohol Use: none Drug Use: none Marital Status: single Housing Status: other (incarcerated) Occupation Status: other (incarcerated) Allergies Coded Allergies: No Known Allergies (Unverified , 01/01/18) Current Inpatient Medications Current Inpatient Medications Medications (Trade) Dose Ordered Sig/Nahum Route Start Time Stop Time Status Last Admin Dose Admin Heparin Sodium (Porcine) (Heparin Sq 5000 Unit/0.5ml) 5,000 unit Q12 SQ 01/02/18 09:00 02/01/18 08:59 01/02/18 07:42 5,000 UNIT Acetaminophen (Tylenol Tab) 650 mg Q4H PRN PO 01/01/18 22:15 01/31/18 22:14 Atorvastatin Calcium (Lipitor Tab) 20 mg DAILY PO 01/02/18 09:00 02/01/18 08:59 01/02/18 07:40 20 MG Lisinopril (Zestril Tab) 20 mg DAILY PO 01/02/18 09:00 02/01/18 08:59 01/02/18 07:40 20 MG Metoprolol Tartrate (Lopressor Tab) 25 mg BID PO 01/02/18 09:00 02/01/18 08:59 01/02/18 07:40 25 MG Clopidogrel Bisulfate (plAVix TAB) 75 mg QAM PO 01/02/18 09:00 02/01/18 08:59 01/02/18 09:09 75 MG Ioversol (Optiray 320) 125 ml UD PRN IV 01/02/18 08:30 01/06/18 08:29 Review of Systems Constitutional: No weakness, No fatigue Eyes: + worsening of vision, No diplopia ENT: No hearing loss, No trouble swallowing Respiratory: No cough, No shortness of breath Cardiovascular: No chest pain, No palpitations Abdomen: No pain, No nausea Musculoskeletal: No joint pain, No muscle pain Genitourinary - Male: No dysuria, No urinary incontinence Neurologic: No memory loss, No weakness, No numbness/tingling, No vertigo, No balance problems Psychiatric: No depression symptoms, No anxiety Endocrine: No fatigue Hematologic / Lymphatic: No abnormal bleeding/bruising Integumentary: No rash Allergic / Immunologic: No hives Physical Exam Vital Signs (Past 24 Hrs): Date Time Temp Pulse Resp B/P (MAP) Pulse Ox O2 Delivery O2 Flow Rate FiO2 01/02/18 08:00 Room Air 01/02/18 06:53 36.7 61 18 165/96 (119) 96 Room Air 01/02/18 04:29 36.8 70 18 158/88 (111) 98 Room Air 01/01/18 23:59 Room Air 01/01/18 23:30 36.8 85 18 191/100 (130) 97 Room Air 01/01/18 22:52 37.1 85 18 153/84 (107) 97 Room Air 01/01/18 22:00 37.2 86 20 167/92 98 Room Air 01/01/18 21:40 98 16 188/107 97 Room Air 01/01/18 20:12 90 16 164/105 97 Room Air 01/01/18 18:33 71 20 177/98 96 Room Air 01/01/18 15:53 37.3 80 20 181/93 96 Room Air Patient is right-handed. The patient is awake and alert. Speech is normal without aphasia or dysarthria. Mentation and thought processes are intact with full orientation and normal fund of knowledge. Mood and affect are normal and appropriate. Appearance and grooming are normal. Long and short-term memory are intact. Tension in concentration are normal. The discs are sharp with positive venous pulsations. There are no exudates, hemorrhages, or blood vessel changes seen. Pupils are 4mm bilaterally and reactive to light. Extraocular eye muscles are intact without nystagmus. Visual acuity seems reasonable. He has a left homonymous hemianopsia present. He sees fairly well off to the right but this is decreased compared to normal. There are no deficits to sensation of the face bilaterally. Corneal reflexes are positive bilaterally. Facial strength and symmetry is normal bilaterally. Hearing seems intact grossly to voice and finger rub. Palate moves well without asymmetry. There is normal sternocleidomastoid and trapezius strength bilaterally. Tongue is midline with good strength bilaterally. Neck is with full range of motion without discomfort. There are no cervical bruits. There are no cranial or ocular bruits. Heart is without murmur. Cervical, thoracic, and lumbar spine are nontender to palpation. Gait is not tested but stance sitting up in bed is reasonable. With outstretched arms there is no drift. There are no resting, postural, or action tremors. There is no ataxia with [id number] testing. There is good facility in the hands. There are no abnormal involuntary movements noted. Motor strength is 5/5 diffusely in the arms bilaterally including deltoids, biceps, brachioradialis, wrist flexors and extensors, wool spotter, and intrinsic hand muscles. Motor strength is 5/5 diffusely in the legs bilaterally including hip flexors, quadriceps, hamstring, gastrocnemius, tibialis anterior, tibialis posterior, and peroneii muscles bilaterally. Toe extensors are normal and there is good bulk in the extensor digitorum brevis muscle bilaterally. The limbs have good tone without rigidity or spasticity, and there is no atrophy noted. Muscle bulk is normal, there is no tenderness, no myotonia noted to percussion, and no fasciculations seen. Sensory examination is intact to pin and touch throughout all four limbs. Reflexes are 1/4 in the biceps, triceps, brachioradialis, quadriceps, and Achilles tendons bilaterally. Toes are downgoing with plantar stimulation bilaterally. Peripheral pulses are present and of normal quality distally in all four limbs. There is no peripheral edema noted. Laboratory Results Past 24 Hours: 01/02/18 04:13 Red Blood Count 3.99, Mean Corpuscular Volume 93.2, Mean Corpuscular Hemoglobin 30.3, Mean Corpuscular Hemoglobin Concent 32.5, Mean Platelet Volume 10.0, Neutrophils (%) (Auto) 48.0, Lymphocytes (%) (Auto) 37.2, Monocytes (%) (Auto) 9.7, Eosinophils (%) (Auto) 4.5, Basophils (%) (Auto) 0.4, Neutrophils # (Auto) 2.59, Lymphocytes # (Auto) 2.00, Monocytes # (Auto) 0.52, Eosinophils # (Auto) 0.24, Basophils # (Auto) 0.02 01/02/18 04:13 Test 01/01/18 16:02 01/02/18 04:13 01/02/18 11:09 Activated Partial Thromboplast Time 24.9 SECONDS (21.0-31.0) Partial Thromboplastin Ratio 1.0 Estimated Average Glucose 114 mg/dl Hemoglobin A1c 5.6 % (4.5-5.6) Magnesium Level 1.9 mg/dl (1.8-2.4) Total Bilirubin 0.4 mg/dl (0.2-1) Direct Bilirubin 0.1 mg/dl (0-0.2) Aspartate Amino Transf (AST/SGOT) 18 U/L (15-37) Alanine Aminotransferase (ALT/SGPT) 17 U/L (12-78) Alkaline Phosphatase 82 U/L (45-117) Total Protein 8.1 gm/dl (6.4-8.2) Albumin 3.8 gm/dl (3.4-5.0) Triglycerides Level 121 mg/dl (0-150) Cholesterol Level 103 mg/dl (0-200) HDL Cholesterol 45 mg/dl LDL Cholesterol, Calculated 34 mg/dl VLDL Cholesterol, Calculated 24 mg/dl Cholesterol/HDL Ratio 2.3 White Blood Count 5.38 K/uL (4.8-10.8) Red Blood Count 3.99 M/uL (4.7-6.1) Hemoglobin 12.1 g/dL (14.0-18.0) Hematocrit 37.2 % (42-52) Mean Corpuscular Volume 93.2 fL (80-100) Mean Corpuscular Hemoglobin 30.3 pg (25-34) Mean Corpuscular Hemoglobin Concent 32.5 g/dl (32-36) Platelet Count 226 K/uL (130-400) Mean Platelet Volume 10.0 fL (7.4-10.4) Neutrophils (%) (Auto) 48.0 % Lymphocytes (%) (Auto) 37.2 % Monocytes (%) (Auto) 9.7 % Eosinophils (%) (Auto) 4.5 % Basophils (%) (Auto) 0.4 % Neutrophils # (Auto) 2.59 K/uL (1.4-6.5) Lymphocytes # (Auto) 2.00 K/uL (1.2-3.4) Monocytes # (Auto) 0.52 K/uL (0.11-0.59) Eosinophils # (Auto) 0.24 K/uL (0-0.5) Basophils # (Auto) 0.02 K/uL (0-0.2) RDW Standard Deviation 43.0 fL (36.4-46.3) RDW Coefficient of Variation 12.6 % (11.5-14.5) Immature Granulocyte % (Auto) 0.2 % Immature Granulocyte # (Auto) 0.01 K/uL (0.00-0.02) Prothrombin Time 10.4 SECONDS (9.0-12.0) Prothromb Time International Ratio 1.0 (0.9-1.1) Anion Gap 6.0 mmol/L (3-11) Est Creatinine Clear Calc Drug Dose 86.9 ml/min Estimated GFR () 95.2 Estimated GFR (Non- 82.2 BUN/Creatinine Ratio 15.5 (10-20) Calcium Level 8.5 mg/dl (8.5-10.1) Total Creatine Kinase 43 U/L (39-308) Creatine Kinase MB < 1.0 ng/ml (0.5-3.6) Creatine Kinase MB Ratio (0-3.0) Troponin I < 0.015 ng/ml (0-0.045) Bedside Glucose 100 mg/dl (70-99) Date/Time Source Procedure Growth Status 01/02/18 00:00 Nasal MRSA DNA Surveillance Screen - Final Specimen Negative for MRSA by DNA Probe Complete Imaging MRI OF THE BRAIN COMBO; MRI OF THE PITUITARY GLAND COMBO CLINICAL HISTORY: Visual changes. COMPARISON STUDY: CT of the brain dated 01/01/2018. TECHNIQUE: MRI of the brain was performed utilizing various T1 and T2-weighted sequences in the axial, sagittal, and coronal planes. Contrast-enhanced sequences were acquired following the administration of 9 cc of Gadavist. Additional high-resolution and dynamic postcontrast imaging of the pituitary gland is performed. The Examination is degraded by motion artifact. FINDINGS: Brain parenchyma: There are age-related involutional changes noting moderate to advanced subcortical and periventricular microangiopathic disease. No hemorrhage or midline shift is identified. There is a large region of restricted diffusion identified involving predominantly the right occipital lobe consistent with acute to subacute ischemia. There is mild surrounding edema. Encephalomalacia in the left occipital lobe is consistent with a remote infarct. No additional foci of acute ischemia are identified. No enhancing mass lesion is seen on the postcontrast images. No extra-axial fluid collection is seen. The cerebellar tonsils are normal in configuration. Ventricles, sulci, and cisterns: Prominent second or to involutional change. Pituitary and sella: The pituitary gland is normal in morphology. There is no evidence of pituitary lesion on the dynamic postcontrast sequences. The infundibulum is midline. Intracranial vasculature: Normal flow voids are maintained at the skull base. Orbits: The bony orbits are grossly intact. Orbital contents are normal in appearance. Sinuses and mastoids: There is mild mucosal thickening in the right maxillary antrum. A 3 cm retention cyst is noted in the left maxillary antrum. The remaining paranasal sinuses are clear. The mastoid air cells are well pneumatized. Calvarium: Unremarkable. Cervical cord: Partially visualized cervical spinal cord is normal in morphology and signal intensity. IMPRESSION: 1. There is a large acute to subacute infarct involving the right occipital lobe. 2. No additional foci of acute ischemia are identified. There is no hemorrhage or midline shift. 3. There is a remote left occipital infarct. 4. Unremarkable MRI of the pituitary gland. Electronically signed by: Dez Guerra M.D. 01/01/2018 8:56 PM Impression 1. Acute right occipital CVA of a large nature, likely December 31 This is likely thrombotic in nature On exam he has a significant left homonymous hemianopsia present. He has no other focal neurologic signs, meningeal signs, or encephalopathy. Risk factors for stroke include hypertension, diabetes, and dyslipidemia. His blood pressure was not adequately controlled on admission. 2. Old left occipital CVA with residual right visual field deficits from this. This is stable. CT angiography of the head neck was unremarkable with no significant stenoses or other vascular issues. Plan 1. Agree with the addition of clopidogrel 75 milligrams daily to the 81 milligram aspirin tablet daily. This should be kept for the next 2-3 months and then the aspirin should be discontinued and kept on clopidogrel alone. 2. Control blood pressure as you are doing going for a mean arterial pressure of approximately 100. 3. His cholesterol is quite low at 103 and he is not a candidate for high-dose statins. 4. Control glucose as you are doing. Hemoglobin A1c of 5.6 is reasonable. 5. Physical, occupational speech therapy consult can be obtained 6. Echocardiogram is pending. I spent a total of 90 minutes with this case including review of records, MRI film review, direct patient evaluation at bedside, and discussion of the case with Dr. De Leon, clinical staff on the case, and the patient himself at bedside including differential diagnosis and treatment options.
--- NOTE | 2018-01-02 12:56 | ECHOCARDIOGRAM REPORT ---
*NOTICE TO RECEIVING [employer] This information is strictly Confidential and protected under [place] law. [place] law prohibits you from making any further disclosure of this information unless further disclosure is expressly permitted by the written consent of the person to whom it pertains or is authorized by law. A general authorization for the release of medical or other information is not sufficient for this purpose. Hospital accepts no responsibility if the information is made available to any other person, INCLUDING THE PATIENT. Interpretation Summary * Name: RAJANI BYRNE [id number] Study Date: 01/02/2018 07:04 AM BP: 158/88 mmHg * Patient Location: .2T\S\E215\S\1 HR: 66 * : 1955 (M/d/yyy) Gender: Male Height: 73 in * Age: 62 yrs Ethnicity: AA Weight: 202 lb * Ordering Physician: Noble Morris * Referring Physician: Stas BOONE * Performed By: Smitha Reyes RCS * * Reason For Study: STROKE * BSA: 2.2 m2 * -- Conclusions -- * 1. Normal left ventricular size with low-normal systolic function. EF 50-55%. Akinesis of the mid to distal inferolateral wall. Otherwise, normal wall motion. Mild concentric left ventricular hypertrophy. No significant diastolic dysfunction. * 2. There is mild mitral regurgitation. * 3. There is no visualized right to left inter atrial shunt following agitated saline injection. No obvious ASD or PFO. * 4. Normal estimated right ventricular systolic pressure. * 5. No prior study available for comparison. Procedure Details * A complete two-dimensional transthoracic echocardiogram was performed (2D, M-mode, Doppler and color flow Doppler). * A saline contrast injection was performed to assess for cardiac shunting. * The injection was performed through an intravenous line in the right arm. * The attending nurse who injected the saline contrast was FERNANDA TEAGUE, RN. * A total of 20 cc of agitated saline was given. Left Ventricle * Normal left ventricular size with low-normal systolic function. EF 50-55%. Akinesis of the mid to distal inferolateral wall. Otherwise, normal wall motion. Mild concentric left ventricular hypertrophy. No significant diastolic dysfunction. Right Ventricle * The right ventricle is normal in size and function. * The right ventricular systolic function is normal as assessed by tricuspid annular plane systolic excursion (TAPSE) (normal >1.5 cm). Atria * The left atrial size is normal. * Right atrial size is normal. * There is no visualized right to left inter atrial shunt following agitated saline injection. No obvious ASD or PFO. Mitral Valve * The mitral valve is grossly normal. * There is no mitral valve stenosis. * There is mild mitral regurgitation. Tricuspid Valve * The tricuspid valve is not well visualized, but is grossly normal. * There is no tricuspid stenosis. * There is trace tricuspid regurgitation. Aortic Valve * The aortic valve is trileaflet. * No hemodynamically significant valvular aortic stenosis. * No aortic regurgitation is present. Pulmonic Valve * The pulmonary valve is inadequately visualized, but the Doppler data is adequate for interpretation. * There is no pulmonic valvular stenosis. * Mild pulmonic valvular regurgitation. Great Vessels * The aortic root is normal size. * Ascending aorta of normal dimension Pericardium/Pleural * There is no pericardial effusion. Great Vessels * Normal inferior vena cava size and collapsability with sniff indicates a normal right atrial pressure of 3 mmHg MMode 2D Measurements and Calculations IVSd 1.2 cm LVIDd 5.0 cm LVIDs 3.4 cm LVPWd 1.3 cm IVS/LVPW 0.96 FS 32.3 % EDV(Teich) 118.0 ml ESV(Teich) 46.9 ml EF(Teich) 60.3 % EDV(cubed) 124.6 ml ESV(cubed) 38.7 ml EF(cubed) 68.9 % LV mass(C)d 254.3 grams LV mass(C)dI 117.7 grams/m\S\2 SV(Teich) 71.1 ml SI(Teich) 32.9 ml/m\S\2 SV(cubed) 85.9 ml SI(cubed) 39.8 ml/m\S\2 Ao root diam 3.5 cm Ao root area 9.4 cm\S\2 LA dimension 3.3 cm asc Aorta Diam 3.0 cm LA/Ao 0.94 LVOT diam 2.1 cm LVOT area 3.3 cm\S\2 LVAd ap4 34.2 cm\S\2 LVLd ap4 8.2 cm EDV(MOD-sp4) 121.1 ml EDV(sp4-el) 120.8 ml LVAs ap4 22.3 cm\S\2 LVLs ap4 7.4 cm ESV(MOD-sp4) 58.4 ml ESV(sp4-el) 56.6 ml EF(MOD-sp4) 51.8 % EF(sp4-el) 53.2 % LVAd ap2 26.6 cm\S\2 LVLd ap2 7.5 cm EDV(MOD-sp2) 78.8 ml EDV(sp2-el) 80.0 ml LVAs ap2 17.3 cm\S\2 LVLs ap2 6.4 cm ESV(MOD-sp2) 41.4 ml ESV(sp2-el) 39.9 ml EF(MOD-sp2) 47.4 % EF(sp2-el) 50.1 % LVLd %diff -9.40 % EDV(MOD-bp) 101.6 ml LVLs %diff -16.11 % ESV(MOD-bp) 53.5 ml EF(MOD-bp) 47.4 % SV(MOD-sp4) 62.7 ml SI(MOD-sp4) 29.0 ml/m\S\2 SV(MOD-sp2) 37.4 ml SI(MOD-sp2) 17.3 ml/m\S\2 SV(MOD-bp) 48.1 ml SI(MOD-bp) 22.3 ml/m\S\2 SV(sp4-el) 64.2 ml SI(sp4-el) 29.7 ml/m\S\2 SV(sp2-el) 40.1 ml SI(sp2-el) 18.6 ml/m\S\2 Doppler Measurements and Calculations MV E max manpreet 58.2 cm/sec MV A max manpreet 53.4 cm/sec MV E/A 1.1 MV P1/2t max manpreet 78.5 cm/sec MV P1/2t 74.0 msec MVA(P1/2t) 3.0 cm\S\2 MV dec slope 310.6 cm/sec\S\2 MV dec time 0.24 sec Ao V2 max 102.7 cm/sec Ao max PG 4.2 mmHg Ao max PG (full) 0.99 mmHg ELDON(V,A) 2.9 cm\S\2 ELDON(V,D) 2.9 cm\S\2 LV V1 max PG 3.2 mmHg LV V1 max 89.8 cm/sec MR max manpreet 498.2 cm/sec MR max PG 99.3 mmHg PA V2 max 80.7 cm/sec PA max PG 2.6 mmHg PI max manpreet 178.6 cm/sec PI max PG 12.8 mmHg PI dec slope 194.2 cm/sec\S\2 PI P1/2t 269.3 msec TR max manpreet 233.8 cm/sec RVSP(TR) 24.9 mmHg RAP systole 3.0 mmHg
[2018-01-02 13:04] LABS: CKMB < 1.0 ng/ml (0.5-3.6)
[2018-01-02 15:59] VITALS: BP 163/79; PULSE 68; TEMP 36.8; O2SAT 98
[2018-01-02 19:55] VITALS: BP 177/97; PULSE 75; TEMP 37.1; O2SAT 96
[2018-01-02] MEDS: METOPROLOL TARTRATE 50 MG TAB PO SCH (21:16)
--- NOTE | 2018-01-02 23:07 | Progress Note ---
Subjective Date of Service: Jan 02, 2018. Subjective Pt evaluation today including: conversation w/ patient, physical exam, chart review, lab review, review of studies (CTA, echo, etc), conversation w/ [employer] consultant (neurology - Dr. Mena), review of inpatient medication list Pain: right sided headache PO Intake: normal Voiding: no voiding problems stable tele overnight no new neurological symptoms continues with left upper outer quadrantopia frustrated that this new stroke has happened reports her sister had DVTs in her early 50s no family history of CVA Problem List Medical Problems: (1) Anemia Status: Acute (2) CVA (cerebral vascular accident) Status: Acute Review of Systems Constitutional: No fever Respiratory: No shortness of breath, No dyspnea on exertion Cardiac: No chest pain, No orthopnea Abdomen: No pain Objective Vital Signs Date Time Temp Pulse Resp B/P (MAP) Pulse Ox O2 Delivery O2 Flow Rate FiO2 01/02/18 19:55 37.1 75 18 177/97 (123) 96 Room Air 01/02/18 15:59 36.8 68 18 163/79 (107) 98 Room Air 01/02/18 11:36 36.8 72 16 182/98 (126) 98 Room Air 01/02/18 08:00 Room Air 01/02/18 06:53 36.7 61 18 165/96 (119) 96 Room Air 01/02/18 04:29 36.8 70 18 158/88 (111) 98 Room Air 01/01/18 23:59 Room Air 01/01/18 23:30 36.8 85 18 191/100 (130) 97 Room Air 01/01/18 22:52 37.1 85 18 153/84 (107) 97 Room Air 01/01/18 22:00 37.2 86 20 167/92 98 Room Air 01/01/18 21:40 98 16 188/107 97 Room Air Physical Exam General Appearance: no apparent distress Eyes: + pertinent finding (left sided upper quadrantopia (possible homomynous hemianopsia); right sided hemianopsia) ENT: pharynx normal Neck: no JVD Respiratory/Chest: lungs clear, no respiratory distress, no accessory muscle use Cardiovascular: regular rate, rhythm, no gallop, no murmur Abdomen: normal bowel sounds, non tender, soft, no organomegaly Extremities: no pedal edema Neurologic/Psychiatric: alert, oriented x 3, + pertinent finding (no facial droop; strength 5/5 x 4 exts) Laboratory Results Last 24 Hours Test 01/01/18 22:40 01/02/18 04:13 01/02/18 07:14 01/02/18 11:09 Bedside Glucose 185 mg/dl 98 mg/dl 100 mg/dl White Blood Count 5.38 K/uL Red Blood Count 3.99 M/uL Hemoglobin 12.1 g/dL Hematocrit 37.2 % Mean Corpuscular Volume 93.2 fL Mean Corpuscular Hemoglobin 30.3 pg Mean Corpuscular Hemoglobin Concent 32.5 g/dl Platelet Count 226 K/uL Mean Platelet Volume 10.0 fL Neutrophils (%) (Auto) 48.0 % Lymphocytes (%) (Auto) 37.2 % Monocytes (%) (Auto) 9.7 % Eosinophils (%) (Auto) 4.5 % Basophils (%) (Auto) 0.4 % Neutrophils # (Auto) 2.59 K/uL Lymphocytes # (Auto) 2.00 K/uL Monocytes # (Auto) 0.52 K/uL Eosinophils # (Auto) 0.24 K/uL Basophils # (Auto) 0.02 K/uL RDW Standard Deviation 43.0 fL RDW Coefficient of Variation 12.6 % Immature Granulocyte % (Auto) 0.2 % Immature Granulocyte # (Auto) 0.01 K/uL Prothrombin Time 10.4 SECONDS Prothromb Time International Ratio 1.0 Sodium Level 142 mmol/L Potassium Level 3.9 mmol/L Chloride Level 110 mmol/L Carbon Dioxide Level 26 mmol/L Anion Gap 6.0 mmol/L Blood Urea Nitrogen 15 mg/dl Creatinine 0.97 mg/dl Est Creatinine Clear Calc Drug Dose 86.9 ml/min Estimated GFR () 95.2 Estimated GFR (Non- 82.2 BUN/Creatinine Ratio 15.5 Random Glucose 144 mg/dl Calcium Level 8.5 mg/dl Total Creatine Kinase 43 U/L Creatine Kinase MB < 1.0 ng/ml Creatine Kinase MB Ratio Troponin I < 0.015 ng/ml Test 01/02/18 12:14 Total Creatine Kinase 50 U/L Creatine Kinase MB < 1.0 ng/ml Creatine Kinase MB Ratio Troponin I < 0.015 ng/ml Assessment and Plan 62yo male - 1. acute right-sided occipital lobe stroke - cause? No intracranial stenosis, no ICA stenosis or vertebral-basilar disease, echo w/ o source of thrombus. Should we check hypercoagulable profile given his family h/o VTE? Defer to neurology. Assume thrombotic in nature given his T2DM, HTN, hyperlipidemia, smoking? Cont asa/plavix for secondary prevention for 3-4 weeks, then monotherapy w/ plavix thereafter. Would increase lipitor to high-intensity dosing (40mg daily). Needs to quit tobacco. Would refer to neuro-ophtho after discharge. 2. hyperlipidemia - increase lipitor to 40mg daily. 3. T2DM - controlled. 4. HTN - increase metoprolol to 50mg bid. 5. tobacco dependence - business and financial counsel to quit. 6. wall motion abnormality on echo - needs ischemic evaluation with cardiology after discharge. Certainly has multiple CAD risk factors. 7. DVT proph - heparin SC. Discharge planning: home
[2018-01-02 23:47] VITALS: BP 170/95; PULSE 66; TEMP 37; O2SAT 97
[2018-01-03 02:49] VITALS: BP 178/97; PULSE 68; TEMP 36.9; O2SAT 97
[2018-01-03 06:56] LABS: BASO % 0.4 %; BASO ABS # 0.02 K/uL (0-0.2); EOS % 5.3 %; HEMATOCRIT 37.9 % (42-52); HEMOGLOBIN 12.6 g/dL (14.0-18.0); IG# 0.01 K/uL (0.00-0.02); LYMPH % 40.2 %; LYMPH ABS # 2.29 K/uL (1.2-3.4); MEAN CELL VOLUME 91.5 fL (80-100); MEAN CORPUSCULAR HEMOGLOBIN 30.4 pg (25-34); MEAN CORPUSCULAR HGB CONC 33.2 g/dl (32-36); MEAN PLATELET VOLUME 10.6 fL (7.4-10.4); MONO % 9.3 %; MONO ABS # 0.53 K/uL (0.11-0.59); NEUT % 44.6 %; NEUT ABS # 2.54 K/uL (1.4-6.5); PLATELET COUNT 250 K/uL (130-400); RED CELL DISTRIBUTION WIDTH CV 12.6 % (11.5-14.5); RED CELL DISTRIBUTION WIDTH SD 42.4 fL (36.4-46.3); WHITE BLOOD COUNT 5.69 K/uL (4.8-10.8)
[2018-01-03 07:02] VITALS: BP_SYST 175; BP_SYST 187; BP_DIAS 96; BP_DIAS 98; PULSE 63; TEMP 36.6; O2SAT 98
[2018-01-03 07:26] LABS: CALCIUM 8.8 mg/dl (8.5-10.1); CREATININE 0.97 mg/dl (0.60-1.40); POTASSIUM 3.7 mmol/L (3.5-5.1)
[2018-01-03] MEDS: METOPROLOL TARTRATE 50 MG TAB PO SCH (07:45)
[2018-01-03] MEDS: LISINOPRIL 20 MG TAB PO SCH (07:46)
[2018-01-03] MEDS: CLOPIDOGREL BISULFATE 75 MG TAB PO SCH (07:46)
[2018-01-03] MEDS: HEPARIN SOD 5000 UNIT/0.5 ML CARP SQ SCH (07:48)
[2018-01-03] MEDS ORDERED: ASPIRIN 81 MG ECTAB PO SCH (09:00)
[2018-01-03] MEDS ORDERED: ATORVASTATIN 20 MG TAB PO SCH (09:00)
[2018-01-03 10:53] VITALS: BP 155/91; PULSE 61; TEMP 37.2; O2SAT 97
--- NOTE | 2018-01-03 12:04 | DIAGNOSTIC IMAGING REPORT ---
CT SCAN OF THE BRAIN WITHOUT IV CONTRAST CLINICAL HISTORY: Follow-up stroke. COMPARISON STUDY: CT of the brain dated 01/02/2018. MRI of the brain dated 01/01/2018. TECHNIQUE: Unenhanced axial CT scan of the brain is performed from the vertex to the skull base. A dose lowering technique was utilized adhering to the principles of ALARA. CT DOSE: 537.48 mGy.cm FINDINGS: Brain parenchyma: There is an evolving right occipital lobe infarct with loss of soria-white matter differentiation and mild surrounding edema. No midline shift is identified. No hemorrhage is seen. Left occipital encephalomalacia is unchanged and consistent with a remote infarct. There are age-related involutional changes noting moderate patchy subcortical and periventricular microangiopathic change. No extra-axial fluid collection is seen. Ventricles, sulci, cisterns: Prominent secondary to involutional change. Intracranial vasculature: There is atherosclerotic calcification of the cavernous carotid and vertebral arteries. Calvarium: Unremarkable. Sinuses and mastoids: The visualized paranasal sinuses are clear. The mastoid air cells are well pneumatized. Orbits: The bony orbits are grossly intact. IMPRESSION: 1. There is an evolving right occipital infarct as above. 2. No hemorrhage or midline shift is seen. Electronically signed by: Dez Guerra M.D. 01/03/2018 12:03 PM Dictated Date/Time: 01/03/2018 11:58 AM
[2018-01-03 15:19] VITALS: BP 162/97; PULSE 67; TEMP 36.9; O2SAT 97
[2018-01-03] MEDS ORDERED: PLV75 PO (16:55)
[2018-01-03] MEDS ORDERED: LPR25 PO (16:55)
[2018-01-03] MEDS ORDERED: ZNT150 PO (16:55)
[2018-01-03] MEDS ORDERED: ATOR-22 PO (16:55)
[2018-01-03] MEDS ORDERED: ASPCH81X PO (16:55)
--- NOTE | 2018-01-03 17:03 | Discharge Instructions ---
Discharge Instructions Date of Service Jan 03, 2018. Admission Reason for Admission: stroke Discharge Discharge Diagnosis / Problem: stroke involving the RIGHT OCCIPITAL LOBE ( visual center) Discharge Goals Goal(s): Learn about illness, Diagnostic testing, Therapeutic intervention Activity Recommendations Activity Level: Up Ad Isabel, Assistance Required . Additional Information Patient informed of condition: Yes Advance Directives: No DNR: No Level of Care: Other ([facility]) Communicable Disease: No Prognosis: Stable Oxygen at (LPM): none Jameson Catheter: No Instructions / Follow-Up Instructions / Follow-Up Discharge instructions following your stroke - Activity Recommendations: See above Activation of Emergency Medical System: Call 911, immediately, if you experience any of the following: Warning Signs and Symptoms of Stroke: * Sudden numbness or weakness of the face, arm or leg, especially on one side of the body * Sudden confusion, trouble speaking or understanding * Sudden trouble seeing in one or both eyes * Sudden trouble walking, dizziness, loss of balance or coordination * Sudden severe headache with no cause Do not delay calling 911 if you experience any warning signs or symptoms of a stroke. Delay in seeking medical attention may affect what treatments can be given to you. Risk Factors for Stroke: You can reduce your chances of stroke by working with your medical provider to adopt a healthy lifestyle. Some specific ways to lower your chance of stroke are: * If you are a smoker, now is the time to stop smoking cigarettes * If you are diabetic, improve the control of your blood sugars * Avoid excessive amounts of alcohol * Control high blood pressure * Lose weight if you are overweight * Be sure to lead an active lifestyle * Eat a healthy diet low in salt, cholesterol and fat You should know about other risk factors for stroke that you are unable to control. These include: * Age 55 years or older * Male gender * Certain racial groups: , or / * Family History of Stroke, Mini stroke or Heart Attack * Sickle Cell Disease Follow Up: 1. Please see [facility] or any neurologist of the [facility] within 1 month. 2. Please see a NEURO-OPHTHAMOLOGIST for eye examination within 2-3 weeks. 3. Please set up a 30-day event monitor to exclude paroxysmal atrial fibrillation as the cause of the stroke. 4. If possible patient should be followed by a operator assistant i cementing due to prior history of heart attack and abnormal echocardiogram. [facility] can see him or a operator assistant i cementing through the [facility]. Recommend follow-up with cardiology within 1 month. Current Hospital Diet Patient's current hospital diet: AHA Diet (Heart Healthy), Diabetes Type 2 Diet Discharge Diet Recommended Diet: AHA Diet (Heart Healthy), Diabetes Type 2 Diet Procedures Procedures Performed: MRI brain confirming a stroke in the right occipital lobe. CTA head and neck - NO blocked arteries in the neck or head. Echocardiogram - EF 50-55%, inferior wall akinesis. Pending Studies Studies pending at discharge: no Physician Orders On Transfer Vital Signs: blood pressure and heart rate checks at least twice daily for the next 3-4 weeks Additional Orders: 1. BMP (basic metabolic panel) on 01/04/18. If renal function (creatinine) is normal may RESUME METFORMIN at that time for type 2 diabetes. 2. check fingerstick blood sugars at least once a day. POLST Discussion: Not Applicable Laboratory Results Hemoglobin A1c Test 01/01/18 16:02 Range/Units Estimated Average Glucose 114 mg/dl Hemoglobin A1c 5.6 4.5-5.6 % Lipid Panel Test 01/01/18 16:02 Range/Units Triglycerides Level 121 0-150 mg/dl Cholesterol Level 103 0-200 mg/dl HDL Cholesterol 45 mg/dl Cholesterol/HDL Ratio 2.3 LDL Cholesterol, Calculated 34 mg/dl Medical Emergencies . Who to Call and When: Medical Emergencies: If at any time you feel your situation is an emergency, please call 911 immediately. . Non-Emergent Contact Non-Emergency issues call your: Primary Care Provider Call Non-Emergent contact if: temperature is above 100.5, you have any medication questions . . "Provider Documentation" section prepared by Mik De Leon. . Core Measure Problem Core Measures: Stroke Stroke Core Measures Reason no t-PA for Stroke: Treatment not indicated Reason no antithrom by day 2: Treatment provided - N/A Reason no antithrom at D/C: Treatment provided - N/A Reason no statin at D/C: Treatment provided - N/A Reason no anticoag w/a fib: Treatment not indicated
[2018-01-03 17:17] VITALS: BP 162/97; PULSE 67; TEMP 36.9; O2SAT 97
--- NOTE | 2018-01-07 23:11 | Discharge Summary ---
Discharge Summary Date of Service Jan 07, 2018. Discharge Summary Admission Date: Jan 01, 2018 at 20:57 Discharge Date: Jan 03, 2018 Discharge Disposition: Home ([facility]) Principal Diagnosis: right occipital lobe stroke Problems/Secondary Diagnoses: 1. prior left occipital lobe stroke 2. CAD s/p AR 3. hyperlipidemia 4. HTN 5. T2DM 6. tobacco dependence Immunizations: Have You Had Influenza Vaccine: Unknown History of Tetanus Vaccine?: Unknown History of Pneumococcal: Unknown History of Hepatitis B Vaccine: Unknown Procedures: 1. CT head: IMPRESSION: 1. There is no hemorrhage or mass effect. 2. Left occipital encephalomalacia is consistent with a remote insult. 3. There is heterogeneously diminished attenuation throughout the right temporal occipital region. This could represent a subacute infarct or less likely a mass lesion. Correlation with a contrast-enhanced MRI of the brain is recommended for further assessment. 2. MRI brain: IMPRESSION: 1. There is a large acute to subacute infarct involving the right occipital lobe. 2. No additional foci of acute ischemia are identified. There is no hemorrhage or midline shift. 3. There is a remote left occipital infarct. 4. Unremarkable MRI of the pituitary gland. 3. CTA Head and Neck - negative for stenosis, occlusion, dissection or aneurysm. 4. echocardiogram: * -- Conclusions -- * 1. Normal left ventricular size with low-normal systolic function. EF 50-55% . Akinesis of the mid to distal inferolateral wall. Otherwise, normal wall motion. Mild concentric left ventricular hypertrophy. No significant diastolic dysfunction. * 2. There is mild mitral regurgitation. * 3. There is no visualized right to left inter atrial shunt following agitated saline injection. No obvious ASD or PFO. * 4. Normal estimated right ventricular systolic pressure. * 5. No prior study available for comparison. 5. repeat head CT - no hemorrhagic transformation; right occipital lobe stroke. Consultations: neurology - Olayinka Mena MD PT, OT, speech Medication Reconciliation New Medications: Ranitidine HCl (Ranitidine HCl) 150 Mg Tab 150 MG PO BID, #60 TABS 3 Refills Clopidogrel Bisulfate (Clopidogrel) 75 Mg Tab 75 MG PO QAM, #30 TAB 11 Refills Changed Medications: Aspirin (Aspirin Chewable) 81 Mg Chew 81 MG PO DAILY, #90 TABS 0 Refills (Changed from: Refills: ) take for 3 months from time of discharge then STOP. Atorvastatin (Lipitor) 20 Mg Tab 40 MG PO DAILY, #60 TABS 11 Refills (Changed from: 20 MG; Refills: ) Metoprolol Tartrate (Lopressor) 25 Mg Tab 50 MG PO BID, #60 TABS 11 Refills (Changed from: 25 MG; Refills: ) Continued Medications: Lisinopril (Lisinopril) 20 Mg Tab 20 MG PO DAILY Discontinued Medications: Metformin HCl (Metformin HCl) 500 Mg Tab 500 MG PO BID Discharge Exam Physical Exam: General Appearance: no apparent distress Eyes: + pertinent finding (left-sided homonymous hemianopsia; mild right- sided quadrantopia (upper) ) ENT: pharynx normal Neck: no JVD Respiratory/Chest: lungs clear, no respiratory distress, no accessory muscle use Cardiovascular: regular rate, rhythm, no edema, no gallop, no JVD, no murmur , normal peripheral pulses Abdomen / GI: normal bowel sounds, non tender, soft, no organomegaly Extremities: no pedal edema Neurologic/Psychiatric: no motor/sensory deficits, alert, normal mood/affect , normal reflexes, oriented x 3 Hospital Course HISTORY OF PRESENT ILLNESS: The patient is a 62-year-old male resident of [facility] who presented to the emergency department with complaint of constant right frontal headache that began yesterday, and occasionally becomes more severe towards the right side of his face. His symptoms began with blurred vision in both eyes, in particular difficulty seeing upper and outside portion of his left eye yesterday. He had a stroke 9 years ago, that he left him with inability to see the upper outer portion of his right eye. HOSPITAL COURSE: Initial head CT suggested a right-sided occipital lobe stroke and MRI brain confirmed such. The exact etiology was uncertain as there was no evidence of any intracranial stenosis, echo showed no source of thrombus, and telemetry did not reveal any a. fib. Unless outpatient 30-day event monitoring discovers a. fib then the etiology of this stroke is presumed to be thrombotic in nature. [facility] advised 3 months of ASPIRIN WITH PLAVIX for secondary stroke prevention. Following that 3-month time period the aspirin can be discontinued and he can remain on plavix monotherapy thereafter. He was advised to quit smoking, increase his lipitor to 40mg/day, and follow-up with neuro-ophthomology after discharge. Fortunately he had no other neurological deficits besides the visual field cut. A follow-up head CT later on in his stay did not show any hemorrhagic transformation. Lastly, the patient has a prior history of CAD with AR in the distant past. He reported not having seen a plush dresser in years. I recommended he establish care with a plush dresser for routine care. Total Time Spent: Greater than 30 minutes This includes examination of the patient, discharge planning, medication reconciliation, and communication with other providers. Discharge Instructions Please refer to the electronic Patient Visit Report (Discharge Instructions) for additional information. Follow-Up 1. Please see [facility] or any neurologist of the care home system within 1 month. 2. Please see a NEURO-OPHTHAMOLOGIST for eye examination within 2-3 weeks. 3. Please set up a 30-day event monitor to exclude paroxysmal atrial fibrillation as the cause of the stroke. 4. If possible patient should be followed by a plush dresser due to prior history of heart attack and abnormal echocardiogram. [facility] cardiology can see him or a plush dresser through the care home system. Recommend follow-up with cardiology within 1 month. Additional Copies To Zachary Mena M.D.; [facility] BOONE
== END 2018-01-03 19:10 | DRG 66 ==
LOC: C.EDB 15:53 → C.2T 20:57 → ENRESERV 21:13
PROVIDERS: ADMIT Hospitalist; ATTEND Internal Medicine
DX: I63.30 Cerebral infarction due to thrombosis of unspecified cerebral artery (principal); H53.462 Homonymous bilateral field defects, left side; I10 Essential (primary) hypertension; E11.9 Type 2 diabetes mellitus without complications; E78.5 Hyperlipidemia, unspecified; D64.9 Anemia, unspecified; F17.210 Nicotine dependence, cigarettes, uncomplicated; I69.398 Other sequelae of cerebral infarction; H53.451 Other localized visual field defect, right eye; I25.2 Old myocardial infarction; Z79.82 Long term (current) use of aspirin; Z79.84 Long term (current) use of oral hypoglycemic drugs; Z79.899 Other long term (current) drug therapy